=== PATIENT | female | born 1990 | race Caucasian/White ===

== ENCOUNTER 2016-11-18 17:50 | Emergency (ER) | payer OTHER ==
[~2016-11-18] VITALS: Ht 167.6 cm; Wt 61.4 kg
[~2016-11-18 17:50] MED LIST: HYDR-5688 PO; NORE-18 PO
[2016-11-18 18:01] VITALS: TEMP 36.9; Ht 167.6 cm; Wt 61.4 kg
[2016-11-18] MEDS ORDERED: BCPILLS PO (18:23)
[2016-11-18 18:45] LABS: BASO % 0.8 %; BASO ABS # 0.05 K/uL (0-0.2); COMPLETE YES; EOS % 1.1 %; HEMATOCRIT 39.9 % (37-47); IG% 0.2 %; LYMPH % 46.7 %; LYMPH ABS # 3.05 K/uL (1.2-3.4); MEAN CORPUSCULAR HEMOGLOBIN 31.7 pg (25-34); MEAN CORPUSCULAR HGB CONC 34.1 g/dl (32-36); MEAN PLATELET VOLUME 10.2 fL (7.4-10.4); MONO % 7.7 %; NEUT % 43.5 %; PLATELET COUNT 260 K/uL (130-400); RED BLOOD COUNT 4.29 M/uL (4.2-5.4); WHITE BLOOD COUNT 6.53 K/uL (4.8-10.8)
--- NOTE | 2016-11-18 18:46 | DIAGNOSTIC IMAGING REPORT ---
CT SCAN OF THE BRAIN WITHOUT IV CONTRAST CLINICAL HISTORY: Right facial weakness. COMPARISON STUDY: CT of the brain dated 09/02/2015. TECHNIQUE: Unenhanced axial CT scan of the brain is performed from the vertex to the skull base. Automated dose control exposure was utilized. CT DOSE: 537.48 mGy.cm FINDINGS: Brain parenchyma: The brain parenchyma is normal in appearance. There is no hemorrhage, mass effect, or evidence of acute territorial ischemia by CT criteria. Bowles-white matter is preserved. No extra-axial fluid collection is seen. Ventricles, sulci, cisterns: Normal in configuration. Intracranial vasculature: The visualized intracranial vasculature at the skull base is normal in appearance. Calvarium: Unremarkable. Sinuses and mastoids: The visualized paranasal sinuses are clear. The mastoid air cells are well pneumatized. Orbits: The bony orbits are grossly intact. IMPRESSION: No acute intracranial abnormality. Electronically signed by: Zeke Franks M.D. 11/18/2016 6:45 PM Dictated Date/Time: 11/18/2016 6:43 PM
[2016-11-18] MEDS ORDERED: METHYLPREDNISOLONE 125 MG VIAL IV STA (18:47)
[2016-11-18 19:09] LABS: BUN/CREATININE RATIO 11.4 (10-20); CALCIUM 8.8 mg/dl (8.5-10.1); CREATININE 1.2 mg/dl (0.60-1.20); POTASSIUM 3.5 mmol/L (3.5-5.1)
[2016-11-18 19:44] LABS: LYME DISEASE AB IGG NEG (NEG); LYME DISEASE AB IGM NEG (NEG)
[2016-11-18] MEDS ORDERED: PRED20TA PO (19:55)
[2016-11-18] MEDS ORDERED: VALA1TAB31 PO (19:55)
[2016-11-18 20:00] VITALS: BP 118/76; PULSE 86; O2SAT 98
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
== END 2016-11-18 20:15 | disposition home or self-care (01) ==
LOC: C.EDB 17:52
DX: G51.0 Bell's palsy (principal)

== ENCOUNTER → 2017-02-19 | Outpatient (CLI) | payer OTHER ==
[~2017-02-19] MED LIST changes: +BCPILLS PO; -HYDR-5688 PO; -NORE-18 PO; +PRED20TA PO
[2017-02-22 01:32] LABS: CHLAMYDIA TRACH RNA*** NOT DETECTED (NOT DETECTED); GC (NEIS GONORRHOEAE)RNA** NOT DETECTED (NOT DETECTED)
== END | disposition home or self-care (01) ==
LOC: C.LABSPEC 14:03
PROVIDERS: ATTEND Physician Assistant
DX: Z01.419 Encounter for gynecological examination (general) (routine) without abnormal findings (principal)

== ENCOUNTER → 2017-02-19 | Outpatient (CLI) | payer OTHER ==
[2017-02-19 13:38] LABS: PREG INTERNAL NEGATIVE QC NEG CLEAR BACKGROUND; PREG INTERNAL POSITIVE QC POS CONTROL LINE
== END | disposition home or self-care (01) ==
LOC: C.LAB1850 12:12
PROVIDERS: ATTEND Physician Assistant
DX: N92.6 Irregular menstruation, unspecified (principal)

== ENCOUNTER → 2017-02-19 | Outpatient (CLI) | payer OTHER | END | disposition home or self-care (01) | LOC: C.PAPS 08:56 | PROVIDERS: ATTEND Physician Assistant | DX: Z12.4 Encounter for screening for malignant neoplasm of cervix (principal) ==

== ENCOUNTER 2017-12-11 18:22 | Emergency (ER) | payer OTHER ==
[~2017-12-11] VITALS: Ht 167.6 cm; Wt 61.3 kg
[~2017-12-11 18:22] MED LIST changes: -PRED20TA PO
[2017-12-11 18:27] VITALS: TEMP 37.1; Ht 167.6 cm; Wt 61.3 kg
[2017-12-11 20:37] LABS: BASO % 0.2 %; BASO ABS # 0.03 K/uL (0-0.2); EOS % 0.3 %; EOS ABS # 0.04 K/uL (0-0.5); HEMATOCRIT 40.4 % (37-47); HEMOGLOBIN 13.5 g/dL (12.0-16.0); IG# 0.03 K/uL (0.00-0.02); LYMPH % 34.1 %; LYMPH ABS # 4.15 K/uL (1.2-3.4); MEAN CELL VOLUME 90.4 fL (80-100); MEAN CORPUSCULAR HEMOGLOBIN 30.2 pg (25-34); MEAN CORPUSCULAR HGB CONC 33.4 g/dl (32-36); MEAN PLATELET VOLUME 9.7 fL (7.4-10.4); MONO % 7.4 %; NEUT % 57.8 %; NEUT ABS # 7.02 K/uL (1.4-6.5); PLATELET COUNT 277 K/uL (130-400); RED CELL DISTRIBUTION WIDTH CV 12.5 % (11.5-14.5); RED CELL DISTRIBUTION WIDTH SD 41.4 fL (36.4-46.3); WHITE BLOOD COUNT 12.17 K/uL (4.8-10.8)
[2017-12-11] MEDS ORDERED: CLIN150C PO (20:48)
[2017-12-11] MEDS ORDERED: PRED20TA PO (20:48)
[2017-12-11] MEDS ORDERED: FLVHFA110 INH (20:48)
[2017-12-11] MEDS ORDERED: [UNRECOGNIZED DRUG - CODE] (20:48)
[2017-12-11] MEDS ORDERED: BENZ100C84 PO (20:48)
--- NOTE | 2017-12-11 20:58 | DIAGNOSTIC IMAGING REPORT ---
CHEST 2 VIEWS ROUTINE CLINICAL HISTORY: 27 years-old Female presenting with left chest pain, cough. TECHNIQUE: PA and lateral views of the chest were obtained. COMPARISON: 09/02/2015. FINDINGS: Cardiomediastinal silhouette normal. Lungs and pleural spaces clear. Osseous structures normal. Upper abdomen normal. IMPRESSION: 1. No acute cardiopulmonary disease. Electronically signed by: Berny Lopez M.D. 12/11/2017 8:57 PM Dictated Date/Time: 12/11/2017 8:57 PM
[2017-12-11 21:04] VITALS: O2SAT 98
[2017-12-11 21:08] LABS: ALBUMIN 3.8 gm/dl (3.4-5.0); CALCIUM 8.8 mg/dl (8.5-10.1); CREATININE 0.88 mg/dl (0.60-1.20); POTASSIUM 3.3 mmol/L (3.5-5.1)
[2017-12-11 21:13] LABS: TOTAL PROTEIN 7.8 gm/dl (6.4-8.2)
[2017-12-11 21:54] VITALS: BP 115/83; PULSE 71; O2SAT 99
--- NOTE | 2017-12-12 01:50 | EMERGENCY ROOM VISIT NOTE ---
History Report prepared by Felipe: Sheila Dacosta Under the Supervision of: Dr. Abe Pitts M.D. First contact with patient: 20:07 Chief Complaint: RIB PAIN Stated Complaint: CHEST PAINS, PNEUMONIA History of Present Illness The patient is a 27 year old female who presents to the Emergency Room with complaints of worsening left sided rib pain starting 3 days ago. The patient states that she has had a cough for two weeks. She reports that when the pain started she went to [place]. She states that they did an x-ray and diagnosed her with left sided pneumonia and an ear infection. She reports that they gave her Clindamycin, an inhaler, Prednisone, Hydrocodone, and Benzonatate. She reports that they told her to take 2 days off work. She states that she took off one and states that she felt better yesterday. She states that today it got worse and is now painful to breathe and move. The patient complains of sore throat. Pt denies being a smoker, recent travel, leg swelling, LOC, headache, fevers, chills, diaphoresis, visual changes, neck pain, breathing difficulties, nausea, vomiting, abdominal pain, back pain, melena, hematochezia, urinary symptoms, numbness, weakness, lymphadenopathy, rash, or other complaints. Source of History: patient Onset: 3 days ago Position: other (left rib) Timing: worsening Modifying Factors (Worsening): breathing, movement Associated Symptoms: + sorethroat, + cough Review of Systems See HPI for pertinent positives and negatives. A total of ten systems were reviewed and were otherwise negative. Past Medical & Surgical Medical Problems: (1) Aneurysm (2) Broken foot (3) Exercise-induced asthma Surgical Problems: (1) H/O LEEP Family History Cancer Diabetes mellitus Heart disease Hypertension Social History Smoking Status: Never Smoker Alcohol Use: occasionally Drug Use: none Marital Status: in relationship Housing Status: lives with family Occupation Status: employed Current/Historical Medications Scheduled Benzonatate (Tessalon Perles), 1-2 CAP PO Q4 Control Pills ( Control Pills), 1 TAB PO QPM Clindamycin Hcl (Cleocin), 1 CAP PO QID Fluticasone Propionate (Flovent Hfa), 2 PUFFS INH BID Prednisone (Prednisone), 1 TAB PO DAILY Miscellaneous Medications Phenol (Antiseptic) (Cheracol Sore Throat) Allergies Coded Allergies: Amoxicillin (Unverified Allergy, Mild, HIVES, 12/11/17) Penicillins (Verified Allergy, Mild, HIVES, THROAT SWELLING, 12/11/17) Physical Exam Vital Signs Date Time Temp Pulse Resp B/P (MAP) Pulse Ox O2 Delivery O2 Flow Rate FiO2 12/11/17 21:54 71 18 115/83 99 12/11/17 21:35 67 12/11/17 21:04 98 Room Air 12/11/17 20:38 64 20 124/82 98 Room Air 12/11/17 18:27 37.1 96 20 126/86 98 Room Air Physical Exam GENERAL: Awake, alert, well-appearing, in no distress HENT: Normocephalic, atraumatic. Oropharynx unremarkable. EYES: Normal conjunctiva. Sclera non-icteric. NECK: Supple. No nuchal rigidity. FROM. No masses. RESPIRATORY: Frequent cough. Clear to auscultation. No wheezes. No rales. Normal respiratory effort. CARDIAC: Normal rate. Normal rhythm. No murmurs. No rubs. Extremities warm and well perfused. Pulses equal. No JVD. GI: Soft, non-distended. No tenderness to palpation. No rebound or guarding. No masses. RECTAL: Deferred. MUSCULOSKELETAL: Atraumatic. Chest examination reveals no tenderness. The back is symmetrical on inspection without obvious abnormality. There is no CVA tenderness to palpation. No joint edema. LOWER EXTREMITIES: Calves are equal size bilaterally and non-tender. No edema. No discoloration. NEURO: Normal sensorium. No sensory or motor deficits noted. SKIN: No rash or jaundice noted. Medical Decision & Procedures ER Provider Diagnostic Interpretation: Radiology results as stated below per my review and radiologist interpretation: CHEST 2 VIEWS ROUTINE CLINICAL HISTORY: 27 years-old Female presenting with left chest pain, cough. TECHNIQUE: PA and lateral views of the chest were obtained. COMPARISON: 09/02/2015. FINDINGS: Cardiomediastinal silhouette normal. Lungs and pleural spaces clear. Osseous structures normal. Upper abdomen normal. IMPRESSION: 1. No acute cardiopulmonary disease. Electronically signed by: Berny Lopez M.D. 12/11/2017 8:57 PM Dictated Date/Time: 12/11/2017 8:57 PM Laboratory Results 12/11/17 20:25 Red Blood Count 4.47, Mean Corpuscular Volume 90.4, Mean Corpuscular Hemoglobin 30.2, Mean Corpuscular Hemoglobin Concent 33.4, Mean Platelet Volume 9.7, Neutrophils (%) (Auto) 57.8, Lymphocytes (%) (Auto) 34.1, Monocytes (%) (Auto) 7.4, Eosinophils (%) (Auto) 0.3, Basophils (%) (Auto) 0.2, Neutrophils # (Auto) 7.02, Lymphocytes # (Auto) 4.15, Monocytes # (Auto) 0.90, Eosinophils # (Auto) 0.04, Basophils # (Auto) 0.03 12/11/17 20:25 Test 12/11/17 20:25 12/11/17 20:32 White Blood Count 12.17 K/uL (4.8-10.8) Red Blood Count 4.47 M/uL (4.2-5.4) Hemoglobin 13.5 g/dL (12.0-16.0) Hematocrit 40.4 % (37-47) Mean Corpuscular Volume 90.4 fL (80-100) Mean Corpuscular Hemoglobin 30.2 pg (25-34) Mean Corpuscular Hemoglobin Concent 33.4 g/dl (32-36) Platelet Count 277 K/uL (130-400) Mean Platelet Volume 9.7 fL (7.4-10.4) Neutrophils (%) (Auto) 57.8 % Lymphocytes (%) (Auto) 34.1 % Monocytes (%) (Auto) 7.4 % Eosinophils (%) (Auto) 0.3 % Basophils (%) (Auto) 0.2 % Neutrophils # (Auto) 7.02 K/uL (1.4-6.5) Lymphocytes # (Auto) 4.15 K/uL (1.2-3.4) Monocytes # (Auto) 0.90 K/uL (0.11-0.59) Eosinophils # (Auto) 0.04 K/uL (0-0.5) Basophils # (Auto) 0.03 K/uL (0-0.2) RDW Standard Deviation 41.4 fL (36.4-46.3) RDW Coefficient of Variation 12.5 % (11.5-14.5) Immature Granulocyte % (Auto) 0.2 % Immature Granulocyte # (Auto) 0.03 K/uL (0.00-0.02) Anion Gap 5.0 mmol/L (3-11) Est Creatinine Clear Calc Drug Dose 90.6 ml/min Estimated GFR () 105.1 Estimated GFR (Non- 90.7 BUN/Creatinine Ratio 15.2 (10-20) Calcium Level 8.8 mg/dl (8.5-10.1) Total Bilirubin 0.3 mg/dl (0.2-1) Aspartate Amino Transf (AST/SGOT) 8 U/L (15-37) Alanine Aminotransferase (ALT/SGPT) 21 U/L (12-78) Alkaline Phosphatase 43 U/L (45-117) Total Protein 7.8 gm/dl (6.4-8.2) Albumin 3.8 gm/dl (3.4-5.0) Globulin 4.0 gm/dl (2.5-4.0) Albumin/Globulin Ratio 0.9 (0.9-2) Human Chorionic Gonadotropin, Qual NEG (NEG) Bedside D-Dimer 393 ng/mlFEU (0-450) Bedside Troponin I < 0.030 ng/ml (0-0.045) Laboratory results reviewed by me ECG Per My Interpretation Indication: chest pain Rate (beats per minute): 83 Rhythm: normal sinus Findings: no acute ischemic change, no ectopy, other (no pericarditis) ED Course 2009: The patient was evaluated in room C10. A complete history and physical exam was performed. 2137: I reevaluated the patient and she is feeling better. Discussed results and discharge instructions: She verbalized understanding and agreement. The patient is ready for discharge. Medical Decision Triage Nursing notes reviewed and agree them. The patient's history was concerning for chest pain. Differential diagnosis: Etiologies such as pleurisy, costochondritis, pulmonary embolism, pneumonia, pneumothorax, musculoskeletal, infections, pericarditis, myocarditis, esophageal rupture, gastrointestinal, cardiac ischemia, aortic dissection,as well as others were entertained. Physical examination: As above. ER treatment provided: Patient declined analgesia. On reassessment the patient felt better. Diagnostic interpretation by me: The electrocardiogram was negative for pathologic change. No pericarditis. The labs revealed an unremarkable CBC and chemistry panel except for a slight leukocytosis which is likely related to the patient's respiratory infection and prednisone use. A single set of cardiac markers were performed because the patient's pain was present for greater than 8 hours. A d-dimer was performed and it was negative. Based on Wells criteria and a negative dimer no further imaging for PE was performed. Imaging studies: Chest x-ray as above The patient has pleuritic-type chest pain after dealing with heavy coughing and being diagnosed previously with pneumonia. There is no evidence of pneumonia on current chest imaging. She is doing very well at this time. I suspect that she has some pleurisy or some mild costochondritis from her coughing. She is adequately treated as far as her cough and symptoms. She will follow-up with her primary physician. If she worsens in any way she will be back. I gave my usual and customary discussion regarding this issue. By the evaluation outlined above emergent etiologies such as cardiac ischemia, aortic dissection, pulmonary embolism, pneumonia, pneumothorax, infections, pericarditis, myocarditis, gastrointestinal, as well as others were deemed relatively unlikely. The patient was informed about the findings as listed above. All questions were answered and she was pleased with the treatment. Return instructions were outlined and the patient was discharged in stable condition. Patient was offered a work note but declined. Outpatient prescription management: No change Referral: The patient was referred back to her primary care physician for follow-up in 2 to 3 days for a recheck of the current condition. Medication Reconcilliation Current Medication List: was personally reviewed by me Blood Pressure Screening Patient's blood pressure: Normal blood pressure Blood pressure disposition: Did not require urgent referral Impression Primary Impression: Left sided chest pain Additional Impressions: Pleurisy Cough Scribe Attestation The scribe's documentation has been prepared under my direction and personally reviewed by me in its entirety. I confirm that the note above accurately reflects all work, treatment, procedures, and medical decision making performed by me. Departure Information Dispostion Home / Self-Care Referrals Thom Pritchett M.D. (PCP) Forms HOME CARE DOCUMENTATION FORM, IMPORTANT VISIT INFORMATION, WORK / SCHOOL INSTRUCTIONS Patient Instructions [facility] Additional Instructions CHEST PAIN INSTRUCTIONS: Ibuprofen(Motrin, Advil) may be used for fever or pain. Use 600mg every six hours as needed. Take with food. Avoid using more than 2400mg in a 24 hour period. Do not use 2400mg per day for more than three consecutive days without physician direction. Prolonged inappropriate use can lead to stomach upset or ulcers. (AND/OR) Acetaminophen(Tylenol) may be used for fever or pain. Use 1000mg every six hours as needed. Avoid using more than 4000mg in a 24 hour period. Rest and drink plenty of fluids as tolerated. Continue current medications including the prednisone and antibiotics. Avoid strenuous activities and anything that worsens your pain. Resume normal activities once your symptoms resolve. Return to the ER immediately for worsening or persistent chest pain, abdominal pain, vomiting, fevers, chest pains, difficulty breathing, worsening of your condition, or as needed. Follow up with your primary physician next week for a recheck of your current condition. Problem Qualifiers
== END 2017-12-11 21:55 | disposition still patient (30) ==
LOC: C.EDB 18:24 → C.EDC 21:55
DX: R07.9 Chest pain, unspecified (principal); R09.1 Pleurisy; R05 Cough; J45.990 Exercise induced bronchospasm; Z87.01 Personal history of pneumonia (recurrent); Z98.890 Other specified postprocedural states; Z83.3 Family history of diabetes mellitus; Z82.49 Family history of ischemic heart disease and other diseases of the circulatory system

== ENCOUNTER 2020-09-30 23:42 | Inpatient (IN) ==
[2020-09-30] MEDS ORDERED: BENZOCAINE 20% AER SPR 82.5 GM CAN EXT PRN (23:44)
[2020-09-30] MEDS ORDERED: LACTATED RINGER'S 1,000 ML IV PRN (23:44)
[2020-09-30] MEDS ORDERED: HYDROCORTISONE ACETATE 25 MG SUPP PR PRN (23:44)
[2020-09-30] MEDS ORDERED: bisacodyL 10 MG SUPP PR PRN (23:44)
[2020-09-30] MEDS ORDERED: DIPHTHERIA/TETANUS/PERTUSSIS 0.5 ML SYR/VIAL IM ONE (23:44)
[2020-09-30] MEDS ORDERED: SUPERCREAM 0.870% 15 GM JAR EXT PRN (23:44)
[2020-09-30] MEDS ORDERED: OXYTOCIN 30 UNITS/500 ML BAG IV PRN ×2 (23:44)
[2020-09-30] MEDS ORDERED: ACETAMINOPHEN 325 MG TAB PO PRN (23:44)
[2020-09-30] MEDS ORDERED: IBUPROFEN 600 MG TAB PO PRN (23:44)
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
[2020-09-30] MEDS ORDERED: ePHEDrine sulfate 50 MG/ML AMP ONE (23:55)
[2020-09-30] MEDS ORDERED: SODIUM CHLORIDE 0.9% INJ 10 ML VIAL ONE (23:55)
[2020-09-30] MEDS ORDERED: BUPIVACAINE 0.25% 30 ML VIAL ONE (23:56)
[2020-09-30] MEDS ORDERED: fentaNYL citrate 100 MCG/2 ML VIAL ONE (23:56)
[2020-09-30] MEDS ORDERED: fentaNYL 2MCG/ML ROPIVACAINE 1.25MG/ML 100 ML BAG EPI ONE (23:56)
[2020-10-01 00:02] LABS: Hematocrit (blood only) 37.5 % (37-47); Hemoglobin 12.5 g/dL (12.0-16.0); Mean Corpuscular Hemoglobin 30.5 pg (25-34); Mean Corpuscular Hgb Conc 33.3 g/dL (32-36); Mean Corpuscular Volume 91.5 fL (80-100); Mean Platelet Volume 11.6 fL (7.4-10.4); Platelet Count 215 K/uL (130-400); RDW Coefficient of Variation 13.2 % (11.5-14.5); RDW Standard Deviation 43.6 fL (36.4-46.3); White Blood Count 14.85 K/uL (4.8-10.8)
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
[2020-10-01] MEDS ORDERED: NALOXONE HCL 0.4 MG/1 ML VIAL/CARP IV PRN (00:33)
[2020-10-01] MEDS ORDERED: fentaNYL 2MCG/ML ROPIVACAINE 1.25MG/ML 100 ML BAG EPI PRN (00:33)
[2020-10-01] MEDS ORDERED: NALOXONE HCL 1 MG in SODIUM CHLORIDE 0.9% 1000ML 1,000 ML IV PRN (00:33)
[2020-10-01] MEDS ORDERED: ePHEDrine sulfate 50 MG/ML AMP IV PRN (00:33)
[2020-10-01] MEDS ORDERED: diphenhydrAMINE 50 MG/ML VIAL IV PRN (00:33)
[2020-10-01] MEDS ORDERED: oxyCODONE/ACETAMINOPHEN 5mg/325mg TAB PO PRN (01:10)
[2020-10-01] MEDS ORDERED: ACETAMINOPHEN 325 MG TAB PO PRN (01:10)
--- NOTE | 2020-10-01 01:14 | Delivery Summary ---
Vaginal Delivery Summary Date of Service October 01, 2020 Pre-operative Diagnosis: at 40 5/7 weeks active labor Post-operative Diagnosis: same Procedure: spinal labial laceration and repair EBL: 350cc Anesthesia: spinal Procedure: Presented to labor and delivery and underwent spinal and the arom for clear fluid. Was found to be c/c/+2. The patient pushed for 20 min to deliver a viable male in dianne position. The rest of the infant was then delivered without difficulty through a nuchal cord x1. The baby was vigorous. The nose and mouth were bulb suctioned and the infant was placed in the maternal abdomen for drying and attention. Cord was clamped and cut at one minute of life. Cord blood and segment obtained. Placenta delivered via manual extraction and a succenturate lobe noted. Cervix/sulci/rectum/perineum were intact. A small left labial perineal laceration was repaired in the normal standard fashion. Hemostasis obtained with dilute pitocin and fundal massage. Apgars were 8/9. Mother and baby doing well at the end of the delivery. Vaginal Delivery Summary [facility] Vaginal Delivery Charge Delivery Type Details: [facility]
--- NOTE | 2020-10-01 01:23 | Anesthesia Procedure Note ---
Date of Service October 01, 2020 Anesthesia Post Epidural Note Vital Signs Vital Signs: Pulse BP Pulse Ox 103 H 120/58 L 100 10/01/20 01:17 10/01/20 01:11 10/01/20 01:17 Notes Mental Status: alert / awake / arousable Nausea / Vomiting: adequately controlled Pain: adequately controlled Airway Patency, RR, SpO2: stable & adequate BP & HR: stable & adequate Hydration State: stable & adequate Neuraxial Anesthesia: was administered and sensory block is resolving Anesthetic Complications: no major complications apparent and Pt Satisfied with anesthetic care Epidural: Removed without complications and With tip intact
[2020-10-01] MEDS ORDERED: HYDROCORTISONE ACETATE 25 MG SUPP PR PRN (02:15)
[2020-10-01] MEDS ORDERED: BENZOCAINE 20% AER SPR 82.5 GM CAN EXT PRN (02:15)
[2020-10-01] MEDS ORDERED: OXYTOCIN 30 UNITS/500 ML BAG IV PRN (02:15)
[2020-10-01] MEDS ORDERED: SUPERCREAM 0.870% 15 GM JAR EXT PRN (02:15)
[2020-10-01] MEDS ORDERED: DIPHTHERIA/TETANUS/PERTUSSIS 0.5 ML SYR/VIAL IM ONE (02:15)
[2020-10-01] MEDS ORDERED: bisacodyL 10 MG SUPP PR PRN (02:15)
[2020-10-01] MEDS ORDERED: DOCUSATE SODIUM 100 MG CAP PO SCH (08:00)
[2020-10-01] MEDS ORDERED: PRENATAL VITAMIN 1 TAB PO SCH (08:00)
[2020-10-01] MEDS: PRENATAL VITAMIN 1 TAB PO SCH (08:48)
[2020-10-01] MEDS: DOCUSATE SODIUM 100 MG CAP PO SCH ×2 (08:48→21:32)
[2020-10-01] MEDS: IBUPROFEN 600 MG TAB PO PRN ×3 (08:48→19:38)
[2020-10-01] MEDS ORDERED: bisacodyL 5 MG TABEC PO SCH (20:00)
--- NOTE | 2020-10-02 06:55 | Obstetrical Progress Note ---
Date of Service <Teodoro Jimenez MD - Last Filed: 10/02/20 07:06> October 02, 2020 Assessment & Plan <Teodoro Jimenez MD - Last Filed: 10/02/20 07:06> (1) Postmaturity , 40-42 weeks gestation: A/P: Fawn Perla is a 30 y/o female on PPD#1 following at 40+5 weeks. * Patient feels well today; eating well, voiding well, ambulating well * Pain well-controlled with ibuprofen 600mg q4h prn * PNL: Rh pos, RI, GBS neg, COVID neg * Routine care: OOB, ambulation, diet progression as tolerated * After discharge, will have six-week follow-up with Dr. Evgeny Montiel <Teodoro Jimenez MD - Last Filed: 10/02/20 07:06> Fawn Perla is a 30 y/o female on PPD#1 following at 40+5 weeks. She reports feeling well overall this morning. Moderate abdominal cramping and 5/10 pain well managed on analgesics. Voiding well. Tolerating meals overnight without difficulty. Patient has been able to ambulate some. Has persistent lochia with some improvement this morning. Currently . Review of Systems Denies fever or chills. Denies shortness of breath or cough. Denies chest pain. Denies breast pain. Denies dysuria. Denies leg pain or leg swelling. Denies headache or changes in vision. Physical Exam <Teodoro Jimenez MD - Last Filed: 10/02/20 07:06> General: alert, oriented, no acute distress Cardiac: regular rate and rhythm, no murmurs appreciated Respiratory: lungs clear to auscultation bilaterally a/p, no wheezes/rales/rhonchi, no increased work of breathing, symmetrical chest rise, no respiratory distress Abdomen: soft, mildly tender, nondistended, bowel sounds present Uterus: uterine fundus firm, palpable 4 cm below umbilicus Lower extremities: no lower extremity edema or swelling, no deep calf pain, Daniel's negative bilaterally Results & Data ([facility]) <Teodoro Jimenez MD - Last Filed: 10/02/20 07:06> Vital Signs (Past 12 Hours) Vital Signs Temp Pulse Resp BP Pulse Ox 10/02/20 00:25 36.8 C 71 18 103/72 96 10/01/20 19:30 36.4 C L 67 18 111/72 98 <Treva Pepper MD, FACOG - Last Filed: 10/02/20 07:09> Co-Signing Physician Notes Resident Physician Supervision Note: I interviewed and examined the patient. Discussed with Dr. Heart and agree with findings and plan as documented in the note. Any exceptions or clarifications are listed here: Doing well. Plan d/c later today. Instructions reviewed. Documented By: Treva Pepper MD, FACOG Resident Activity Tracking <Teodoro Jimenez MD - Last Filed: 10/02/20 07:06> Resident Involvement: Resident Care Provided Care Provided: OB Delivery
[2020-10-02] MEDS: DOCUSATE SODIUM 100 MG CAP PO SCH (08:32)
[2020-10-02] MEDS: PRENATAL VITAMIN 1 TAB PO SCH (08:32)
[2020-10-02] MEDS ORDERED: bisacodyL 5 MG TABEC PO SCH (20:00)
== END 2020-10-02 10:40 | disposition home or self-care (01) | DRG 807 ==
LOC: OPB 23:42 → 4S1 23:44 → 4S2 10-01 04:30

== ENCOUNTER 2022-08-24 20:58 | Observation (INO) ==
[2022-08-24] MEDS ORDERED: SODIUM CHLORIDE 0.9% 1000ML 1,000 ML IV ONE (21:14)
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
[2022-08-24] MEDS ORDERED: MoRPHine SULFATE 4 MG/ML 1 ML CARP\\VIAL IV STA (21:15)
[2022-08-24 21:43] LABS: Basophils # (auto) 0.06 K/uL (0-0.2); Basophils % (auto) 0.3 %; Eosinophils # (auto) 0.01 K/uL (0-0.50); Eosinophils % (auto) 0.1 %; Hematocrit (blood only) 33.4 % (34.1-44.9); Hemoglobin 11.7 g/dl (12.0-16.0); Immature Granulocytes # (auto) 0.07 K/uL (0.00-0.02); Immature Granulocytes % (auto) 0.4 %; Lymphocytes # (auto) 2.16 K/uL (1.2-3.4); Lymphocytes % (auto) 11.8 %; Mean Corpuscular Hemoglobin 31.3 pg (25.0-34.0); Mean Corpuscular Volume 89.3 fL (80.0-100.0); Mean Platelet Volume 10.1 fL (9.4-12.3); Monocytes # (auto) 0.84 K/uL (0.24-0.82); Monocytes % (auto) 4.6 %; Neutrophils # (auto) 15.14 K/uL (1.4-6.5); Neutrophils % (auto) 82.8 %; Platelet Count 255 K/uL (130-400); RDW Coefficient of Variation 12.1 % (11.5-14.5); RDW Standard Deviation 39.2 fL (36.4-46.3); Red Blood Count 3.74 M/uL (3.93-5.22); White Blood Count 18.28 K/ul (4.8-10.8)
[2022-08-24 22:02] LABS: Albumin Globulin Ratio 1.8 (0.9-2); Albumin Level 4.1 gm/dl (3.4-5.0); BUN Creatinine Ratio 15.9 (10-20); Bilirubin,Total 0.6 mg/dl (0.2-1.0); Calcium 8.1 mg/dl (8.5-10.1); Est GFR (African American) 134.4 ml/min; Globulin 2.3 gm/dl (2.5-4.0); Potassium 4.3 mmol/L (3.5-5.1); Total Protein 6.4 gm/dl (6.0-8.3)
[2022-08-24 22:08] LABS: Troponin I High Sensitivity 3.6 pg/ml (0-14)
[2022-08-24 22:35] LABS: D Dimer 3220 ug/L FEU (0-500)
[2022-08-24] MEDS ORDERED: OPTIRAY 320 500ml IV ONE (22:54)
[2022-08-24 23:37] LABS: Appearance Urine Clear (Clear); Bacteria Urine Automated Negative (Negative); Bilirubin Urine Negative (Negative); Blood Urine 3+ (Negative); Color Urine Yellow; Epithelial Cell Urine Auto 20-30 /lpf (0-5); Glucose Urine UA Negative (Negative); Ketones Urine Trace (Negative); Leukocyte Esterase Urine Negative (Negative); Nitrite Urine Negative (Negative); Protein Urine Trace (Negative); RBC Urine Automated >30 /hpf (0-4); Specific Gravity Urine > 1.045 (1.000-1.030); Urobilinogen Urine Negative (Negative)
[2022-08-24 23:39] LABS: Pregnancy Test, Serum Positive (Negative)
[2022-08-25] MEDS ORDERED: SODIUM CHLORIDE 0.9% 1000ML 1,000 ML IV ONE ×2 (00:17→00:20)
[2022-08-25] MEDS ORDERED: SODIUM CHLORIDE 0.9% 250 ML IV PRN ×2 (00:21)
[2022-08-25 00:44] LABS: Basophils # (auto) 0.05 K/uL (0-0.2); Basophils % (auto) 0.3 %; Hematocrit (blood only) 30.7 % (34.1-44.9); Hemoglobin 10.6 g/dl (12.0-16.0); Immature Granulocytes # (auto) 0.05 K/uL (0.00-0.02); Immature Granulocytes % (auto) 0.3 %; Lymphocytes # (auto) 1.64 K/uL (1.2-3.4); Lymphocytes % (auto) 9.9 %; Mean Corpuscular Hemoglobin 31.5 pg (25.0-34.0); Mean Corpuscular Hgb Conc 34.5 g/dL (32.0-36.0); Mean Corpuscular Volume 91.1 fL (80.0-100.0); Mean Platelet Volume 10.1 fL (9.4-12.3); Monocytes # (auto) 0.35 K/uL (0.24-0.82); Monocytes % (auto) 2.1 %; Neutrophils # (auto) 14.42 K/uL (1.4-6.5); Neutrophils % (auto) 87.4 %; Platelet Count 240 K/uL (130-400); RDW Coefficient of Variation 12.1 % (11.5-14.5); RDW Standard Deviation 40.3 fL (36.4-46.3); Red Blood Count 3.37 M/uL (3.93-5.22); White Blood Count 16.51 K/ul (4.8-10.8)
[2022-08-25] MEDS ORDERED: MoRPHine SULFATE 2 MG/ML CARP IV STA (01:20)
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
[2022-08-25] MEDS ORDERED: BUPIVACAINE 0.5 % 5 MG/1 ML MPF 30ML VIAL ONE (02:00)
[2022-08-25] MEDS ORDERED: ROCURONIUM BROMIDE 10 MG/ML 5 ML VIAL IV ONE (02:07)
[2022-08-25] MEDS ORDERED: fentaNYL citrate 100 MCG/2 ML VIAL ONE ×2 (02:07→02:53)
[2022-08-25] MEDS ORDERED: MIDAZOLAM HCL 1 MG/ML 2ML VIAL ONE (02:07)
[2022-08-25] MEDS ORDERED: SUCCINYLCHOLINE CHLORIDE 20 MG/ML 10 ML VIAL IV ONE (02:07)
[2022-08-25] MEDS ORDERED: ATROPINE SULFATE 0.1 MG/ML 10ML SYR IV PRN (02:24)
[2022-08-25] MEDS ORDERED: fentaNYL citrate 100 MCG/2 ML VIAL IV PRN (02:24)
[2022-08-25] MEDS ORDERED: HYDROmorphone INJ 2 MG/ML SYR/VIAL IV PRN (02:24)
[2022-08-25] MEDS ORDERED: ePHEDrine sulfate 50 MG/ML AMP IV PRN (02:24)
[2022-08-25] MEDS ORDERED: ONDANSETRON INJ 2 MG/ML 2 ML VIAL IV PRN ×2 (02:24→05:39)
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
[2022-08-25] MEDS ORDERED: DEXAMETHASONE SOD INJ 4 MG/ML VIAL ONE (03:00)
[2022-08-25] MEDS ORDERED: ePHEDrine sulfate 50 MG/ML AMP ONE (03:00)
[2022-08-25] MEDS ORDERED: ONDANSETRON INJ 2 MG/ML 2 ML VIAL ONE (03:00)
[2022-08-25] MEDS ORDERED: HYDROmorphone INJ 2 MG/ML SYR/VIAL ONE (03:16)
[2022-08-25] MEDS ORDERED: NEOSTIGMINE METHYLSULFATE 1 MG/ML 10ML VIAL ONE (03:25)
[2022-08-25] MEDS ORDERED: GLYCOPYRROLATE 0.2 MG/ML VIAL ONE (03:25)
--- NOTE | 2022-08-25 04:13 | Post Operative Brief Note ---
PG Immediate Post Op with CF Date of Surgery August 25, 2022 Pre & Post Diagnosis Operation Date: 08/25/22 01:50 Pre-Op Diagnosis: Hemoperitoneum, positive test, pelvic pain, suspected ectopic Post-Op Diagnosis: Hemoperitoneum, positive test, pelvic pain, suspected ectopic I identified the patient and participated in the time-out.: Yes Procedure Operation Date: 08/25/22 01:50 Actual Procedures p Diagnostic laparoscopy, evacuation of hemoperitoneum, left salpingectomy with removal of suspected ectopic - Michaela Hubbard MD Surgeon Michaela Hubbard MD Telecom Coordinator RN Estimated Blood Loss 50 Findings Consistent with Post-Op Diagnosis Normal uterus and right fallopian tube and ovary. Left fallopian tube enlarged and appeared to contain ectopic , left ovary had benign appearing cyst. At least 600cc hemoperitoneum noted and evacuated Fluids 1700cc crystalloid, 2u prbc transfused prior to procedure Specimens Specimen Description: A. Left ectopic /fallopian tube Anesthesia Type General Complications none Disposition Accompanied Patient To Recovery: Yes Disposition: Recovery Room
--- NOTE | 2022-08-25 04:21 | Operative Report ---
PG Post Operative Report Pre & Post Diagnosis Operation Date: 08/25/22 01:50 Pre-Op Diagnosis: Hemoperitoneum, positive test, pelvic pain, suspected ectopic Post-Op Diagnosis: Hemoperitoneum, positive test, pelvic pain, suspected ectopic pregna ncy I identified the patient and participated in the time-out.: Yes Procedure Operation Date: 08/25/22 01:50 Actual Procedures p Diagnostic laparoscopy, evacuation of hemoperitoneum, left salpingectomy with removal of suspected ectopic - Michaela Hubbard MD Surgeon Michaela Hubbard MD Basketball Commentator RN Estimated Blood Loss 50 Findings Consistent with Post-Op Diagnosis Normal uterus and right fallopian tube and ovary. Left fallopian tube enlarged and consistent with ectopic , left ovary had benign appearing cyst. At least 600cc hemoperitoneum noted and evacuated Fluids 1700cc crystalloid, 2u prbc transfused prior to procedure by ER, 300cc UOP by straight cath prior to procedure Specimens A: Left fallopian tube w/ suspected ectopic Drains None Anesthesia Type General Complications none Disposition Accompanied Patient To Recovery: Yes Disposition: Recovery Room Indications 32 yo who was unaware that she was presented to ER due to abdominal pain, bleeding, chest pain radiating up to neck when laying down. CT A/P was performed demonstrating large amount of hemoperitoneum and suspected ruptured hemorrhagic cyst vs ectopic . test returned as positive with quant of 2500. Given pain, large hemoperitoneum and HCG, recommended for above procedure due to suspected rupturing ectopic Description of Procedure The patient was taken to the operating room. She was placed in dorsal supine position. General endotracheal anesthesia was obtained without difficulty. Her legs were placed in stirrups. The abdomen, perineum and vagina prepped and draped in normal sterile fashion. An OR time-out was performed confirming the patient and the procedure. Straight catheterization was performed. Sponge stick was inserted into the vagina. An umbilical stab incision was made with a scalpel. The Veress needle was then introduced with intraperitoneal placement confirmed with low opening CO2 pressure. The abdomen was then insufflated to a pressure of 15 mmHg. An optically guided 5 mm trocar was placed and there was no evidence of vascular or bowel injury upon immediate inspection. Large amount of hemoperitoneum was noted in the pelvis. The patient was placed in steep Trendelenburg position. Accessory ports were placed under direct visualization. The above listed findings were noted. Hemoperitoneum was suctioned. The engorged left fallopian tube was identified and followed out to its fimbriated end. The ligasure device was used to cauterize and divide the fallopian tube from the ovary to the level of the cornua. This was handed off for pathology. Salpingectomy site was hemostatic. Hemoperitoneum continued to be suctioned out until could not easily suction out anymore. Left fallopian tube was placed in an endocatch bag. The port was removed and bag removed intact containing specimen. Procedure was then terminated. Abdomen was desufflated. Trocars were removed and the skin edges were reapproximated using 4-0 Monocryl and Dermabond. [place] manipulator and tenaculum were removed, tenaculum sites were hemostatic. The patient tolerated the procedure well. Sponge, needle and instrument counts were correct x2 at the completion of the procedure. I attest to the content of the Intraoperative Record and any orders documented therein. Any exceptions are noted below. CATEGORY ANALYST Major Procedure Codes Laparotomy/Laparoscopic [address] [facility] SO part/total CATEGORY ANALYST Minor Procedure Codes Laparoscopy(ic) 56291 Dx Laparoscopy [address] [facility] SO part/total
--- NOTE | 2022-08-25 04:53 | Anesthesiology Progress Note ---
Date of Service August 25, 2022 Anesthesia Post Procedure Vital Signs Vital Signs: Temp Pulse Pulse Resp BP BP BP 08/25/22 04:50 74 15 101/62 08/25/22 04:40 86 15 105/63 08/25/22 04:30 36.4 C L 116 H 21 116/72 08/25/22 02:02 37.3 C 86 20 99/66 L 08/25/22 01:50 96 H 20 107/62 08/25/22 01:00 109 H 22 113/75 08/25/22 01:20 87 16 113/75 08/25/22 01:05 37.1 C 95 H 18 112/83 08/25/22 00:50 36.8 C 98 H 19 92/64 L 08/24/22 23:00 95 H 16 92/62 L 08/24/22 21:24 08/24/22 21:23 85 18 104/62 08/24/22 21:23 08/24/22 20:59 36.9 C 101 H 20 110/77 Pulse Ox O2 Del Method O2 Flow Rate 08/25/22 04:50 96 Nasal Cannula 2 08/25/22 04:40 96 Nasal Cannula 2 08/25/22 04:30 95 Nasal Cannula 4 08/25/22 02:02 100 08/25/22 01:50 98 08/25/22 01:00 96 Room Air 08/25/22 01:20 97 08/25/22 01:05 100 08/25/22 00:50 100 08/24/22 23:00 99 Room Air 08/24/22 21:24 Room Air 08/24/22 21:23 100 Room Air 08/24/22 21:23 Room Air 08/24/22 20:59 99 Pain Intensity Left Abdomen: Pain Intensity: 9 Transfer of Care Handoff Completed per policy Notes Mental Status: alert / awake / arousable and participated in evaluation Patient Amnestic to Procedure: Yes Nausea / Vomiting: adequately controlled Pain: adequately controlled Airway Patency, RR, SpO2: stable & adequate BP & HR: stable & adequate Hydration State: stable & adequate Anesthetic Complications: no major complications apparent and Pt Satisfied with anesthetic care
[2022-08-25] MEDS ORDERED: IBUPROFEN 600 MG TAB PO PRN (05:39)
[2022-08-25] MEDS ORDERED: oxyCODONE HCL IR 5 MG TAB (IMMEDIATE RELEASE) PO PRN ×2 (05:39)
[2022-08-25] MEDS ORDERED: LACTATED RINGER'S 1,000 ML IV SCH (05:39)
[2022-08-25] MEDS ORDERED: ACETAMINOPHEN 500 MG TAB PO PRN (05:39)
--- NOTE | 2022-08-25 07:49 | XRay Report ---
XR chest 1V portable HISTORY: 32 years-old Female Chest pain, nonspecific acute chest pain COMPARISON: CTA chest of same day TECHNIQUE: Portable AP view of the chest FINDINGS: Cardiomediastinal and hilar silhouettes are within normal limits. No pneumothorax, pleural effusion, airspace consolidation or overt pulmonary edema. Bones of the chest appear grossly intact. There is m ild gaseous distention of the hepatic flexure. IMPRESSION: No acute process of the chest. ACT 112: Negative or not required by law. The above report was generated using voice recognition software. It may contain grammatical, syntax o r spelling errors. Electronically signed by: Ezio Herman M.D. 08/25/2022 7:47 AM
--- NOTE | 2022-08-25 08:05 | CT Scan Report ---
CT angio neck with con CLINICAL HISTORY: 32 years-old Female with R sided neck pain. Acute right-sided neck pain with lef t-sided abdominal pain and vaginal bleeding COMPARISON STUDY: Head CT 09/02/2015 TECHNIQUE: Following the IV administration of 116 mL of Optiray, CT angiogram of the neck was perform ed from the aortic arch to the skull base. Images are reviewed in the axial, sagittal, and coronal pl anes. 3-D MIPS images are created and assessed. IV contrast was administered without complication. Al l measurements were calculated based on NASCET criteria. A dose lowering technique was utilized adhe ring to the principles of ALARA. FINDINGS: Three-vessel morphology of the thoracic aortic arch. Patency of the innominate and imaged subclavian arteries. The common, internal and vertebral arteries are patent. Dominant right vertebral artery. Th e left vertebral artery is developmentally diminutive. No pneumothorax. Lung apices appear clear. Unremarkable soft tissues and thyroid. The imaged intracra nial structures appear unremarkable. Mild nasopharyngeal secretions. No acute fracture. Multilevel de generative changes of the mid to lower cervical spine. IMPRESSION:Unremarkable CTA of the neck. ACT 112: Negative or not required by law. The above report was generated using voice recognition software. It may contain grammatical, syntax o r spelling errors. Electronically signed by: Ezio Herman M.D. 08/25/2022 8:03 AM
[2022-08-25 08:06] LABS: Hematocrit (blood only) 35.1 % (34.1-44.9); Hemoglobin 12.3 g/dl (12.0-16.0); Mean Corpuscular Hemoglobin 31.5 pg (25.0-34.0); Platelet Count 167 K/uL (130-400); RDW Coefficient of Variation 12.7 % (11.5-14.5); RDW Standard Deviation 41.2 fL (36.4-46.3); White Blood Count 13.96 K/ul (4.8-10.8)
--- NOTE | 2022-08-25 08:15 | CT Scan Report ---
CT angio chest PE protocol, CT abd pelvis IV con only CT DOSE: 792.09 mGy.cm (accession [id number]), 0.00 mGy.cm (accession [id number]) HISTORY: 32 years-old Female with PE. Acute chest and abdominal pain with vaginal bleeding and posi tive test. TECHNIQUE: Multiple CTA images of the chest were obtained after the intravenous administration of 116 ml Optiray. Coronal and sagittal MIPS were obtained from the axial data set and were submitted for review. CT abdomen and pelvis was also obtained with IV contrast. All measurements were obtained acc ording to NASCET criteria. A dose lowering technique was utilized adhering to the principles of ALARA . COMPARISON: CTA chest 10/29/2019. FINDINGS: CTA: Heart is normal in size. No pericardial effusion. Unremarkable thoracic aorta and pulmonary artery. N o pulmonary emboli are identified. Suboptimal visualization of the distal segmental and subsegmental branches secondary to contrast bolus timing. CT CHEST: Unremarkable thyroid. Residual thymic tissue anterior mediastinum. No lymphadenopathy identified. No pneumothorax, pleural effusion, airspace consolidation, overt pulmonary edema, suspicious pulmonary n odule or mass. The soft tissues of the chest are within normal limits. No acute fracture identified. CT ABDOMEN/PELVIS: No pneumatosis or pneumoperitoneum. Moderate hemoperitoneum. Unremarkable spleen, pancreas, gallbladd er, adrenal glands and liver. Patency of the hepatic and portal veins. Unremarkable kidneys. Circumfe rential urinary bladder wall thickening with partial distention. Endometrium measures up to 1.8 cm. T here are 3 subadjacent peripherally enhancing cystic foci present within the left adnexal distributio n measuring up to 4.3 cm. Aorta and IVC are unremarkable. No lymphadenopathy identified. No bowel obstruction or bowel wall thickening. Moderate colonic fecal retention. The visualized appen jim is unremarkable. No acute fracture identified. IMPRESSION: 1. Moderate hemoperitoneum with a cluster of peripherally enhancing cystic foci within the left adnex um measuring up to 4.3 cm. Considering the patient's elevated quantitative beta hCG, these findings a re suspicious for a ruptured ectopic gestation. Urgent gynecologic consultation is needed. 2. Unremarkable CTA of the chest. ACT 112: Negative or not required by law. The above report was generated using voice recognition software. It may contain grammatical, syntax o r spelling errors. Electronically signed by: Ezio Herman M.D. 08/25/2022 8:14 AM
--- NOTE | 2022-08-25 09:32 | Gynecologic Progress Note ---
Date of Service August 25, 2022 Assessment & Plan (1) Postop check: (2) Ectopic : Plan s/p removal of suspected ectopic , appropriate postop milestones. Reviewed intraop imaging w/ pt, normal cbc today but likely hemoconcentrated so rec iron. Will get quant on wed to ensure appropriate decline in hcg and follow to zero. Discussed to abstain until cleared at postop appt, activity and lifting restrictions. Rx sent to [facility] per pt request. Will send task for f/u Admission and Anticipated Discharge Date Admission Date: August 25, 2022 Subjective Pt resting, able to lie flat pretty comfortably. Uncomfortable from surgery but denies pain. Has voided, ambulated to bathroom w/o lightheadedness/dizziness. AM CBC wnl Physical Exam Gastrointestinal (Abdomen): abd soft, appropriately tender, ND. Incisions c/d/i Results & Data ([facility]) Vital Signs (Past 12 Hours) Vital Signs Temp Pulse Pulse Pulse Resp BP BP 08/25/22 07:30 08/25/22 07:30 08/25/22 07:30 98.4 F 91 H 18 97/56 L 08/25/22 06:20 98.2 F 83 18 08/25/22 05:51 08/25/22 05:41 98.4 F 98 H 16 100/65 08/25/22 05:16 98.4 F 84 16 102/66 08/25/22 05:00 97.5 F L 87 16 101/64 08/25/22 04:50 74 15 101/62 08/25/22 04:40 86 15 105/63 08/25/22 04:30 97.5 F L 116 H 21 116/72 08/25/22 02:02 99.1 F 86 20 99/66 L 08/25/22 01:50 96 H 20 107/62 08/25/22 01:00 109 H 22 08/25/22 01:20 87 16 113/75 08/25/22 01:05 98.8 F 95 H 18 112/83 08/25/22 00:50 98.2 F 98 H 19 92/64 L 08/24/22 23:00 95 H 16 08/24/22 21:24 08/24/22 21:23 85 18 12/10/22 21:23 BP Pulse Ox O2 Del Method O2 Flow Rate 08/25/22 07:30 98 Nasal Cannula 1 08/25/22 07:30 Room Air 08/25/22 07:30 94 Room Air 08/25/22 06:20 109/73 99 Nasal Cannula 1 08/25/22 05:51 Nasal Cannula 2 08/25/22 05:41 94 Nasal Cannula 2 08/25/22 05:16 92 Nasal Cannula 2 08/25/22 05:00 99 Nasal Cannula 2 08/25/22 04:50 96 Nasal Cannula 2 08/25/22 04:40 96 Nasal Cannula 2 08/25/22 04:30 95 Nasal Cannula 4 08/25/22 02:02 100 08/25/22 01:50 98 08/25/22 01:00 113/75 96 Room Air 08/25/22 01:20 97 08/25/22 01:05 100 08/25/22 00:50 100 08/24/22 23:00 92/62 L 99 Room Air 08/24/22 21:24 Room Air 08/24/22 21:23 104/62 100 Room Air 08/24/22 21:23 Room Air PG Care Time/CCT Total # of Minutes Spent Total Time Spent with Patient: Total time spent is greater than 50% in coordination of care (as documented) at patient's floor/unit and/or counseling patient: Coding Level of Care Code None Diagnoses Postop check Z09 Ectopic O00.90
--- NOTE | 2022-08-25 23:03 | Electrocardiogram Report ---
Test Reason : Blood Pressure : / mmHG Vent. Rate : 084 BPM Atrial Rate : 084 BPM P-R Int : 130 ms QRS Dur : 072 ms QT Int : 374 ms P-R-T Axes : 052 074 059 degrees QTc Int : 441 ms Normal sinus rhythm Normal ECG When compared with ECG of 29-OCT-2019 18:46, No significant change was found Confirmed by Pete Hanson ([id number]) on 08/25/2022 11:03:32 PM Referred By: Ck Pritchett Confirmed By:Pete Hanson
--- NOTE | 2022-08-27 08:08 | Discharge Summary ---
Date of Service August 27, 2022 Admission HPI Per Admitting Provider 32 yo w/ unknown lmp using pops for contraception presented to ER due to severe abd/pelvic pain, pain radiating to neck and difficulty laying down. Had some cramping last evening while at work and came home this AM. Had sex when got home around 8am and had significant pain at that time. Did have some VB As well but thought it was her period starting. Pain continued to worsen in the LLQ and then began going up to under her breasts and radiating into her neck. The pain in neck worsens with lying down, improves with sitting. Has been taking pops but sometimes will forget due to schedule so has missed some pills here and there w/o using backup, not sure when last time that happened. Presented to ER due to neck/chest pain worsening making it difficult to lay down and pelvic pain. In the ER, CT c/a/p and neck did not demonstrate vertebral or carotid stenosis, dissection or occlusion. CT chest was neg for PE, no thoracic aortic aneurysm or dissection, mod volume ascites noted in upper abd. Large volume fluid likely reflecting sero-sanguinous fluid apparently originating from pelvis w/ ddx including hemorrhagic cyst vs ruptured ectopic, multiple left sided adnexal region cysts likely reflect ovarian cysts measuring up to 4cm. Serum qualitative hcg returned as positive and quant returned as 2500 Admission Exam (Per Admitting) Constitutional appears pale and uncomfortable Respiratory more difficulty laying down Gastrointestinal (Abdomen) soft, mod TTP diffusely across lower abdomen/pelvis but worse on left. mild guarding noted Discharge Data Procedures Performed Operation Date: 08/25/22 01:50 Actual Procedures p Diagnostic Laparoscopy, Evacuation of Hemoperitoneum, Left Salpingectomy with Ectopic(Not Applicable) - Michaela Hubbard MD Hospital Course (1) Postop check: (2) Ectopic : Plan The pt did receive blood per ER prior to consultation. See operative report for details of procedure. s/p removal of suspected ectopic , appropriate postop milestones. Reviewed intraop imaging w/ pt, normal cbc today but likely hemoconcentrated so rec iron. Will get quant on to ensure appropriate decline in hcg and follow to zero. Discussed to abstain until cleared at postop appt, activity and lifting restrictions. She was discharged on POD0 Coding Level of Care Code 66878 OBS Care - Discharge Diagnoses Postop check Z09 Ectopic O00.90
== END 2022-08-25 10:15 | disposition home or self-care (01) ==
LOC: ED 20:58 → 4E1 08-25 02:15 → OR 08-25 02:15